=== PATIENT | female | born 1965 | race Caucasian/White ===

== ENCOUNTER 2023-08-26 12:33 | Emergency (ER) | payer BC, SELFPAY ==
[2023-08-26] VITALS (32 sets, daily range): BP systolic 99–122; BP diastolic 56–73; PULSE 40–66; RESP 10–23; TEMP 36.3; O2SAT 100
--- NOTE | 2023-08-26 12:15 | DI.CT_ITS ---
Exam(s) CT HEAD CERVICAL SPINE WO EXAM: CT HEAD CERVICAL SPINE WO CLINICAL HISTORY: trauma. TECHNIQUE: Imaging Protocol: Axial computed tomography images with coronal and sagittal reformatted images were created and reviewed COMPARISON: CR,XR XR SHOULDER LT COMPLETE 2+V from 08/26/2023 FINDINGS: Head CT Ventricles and Extra axial spaces: Normal in size and morphology for the patient's age. Hemorrhage: None. Cerebral parenchyma: No evidence of mass or acute infarct. Midline shift: None. Brainstem/Cerebellum: Normal. Calvarium: Normal. Visualized Paranasal sinuses/Mastoids: Clear. Soft tissues: Unremarkable. Cervical Spine CT BONES: Vertebral body heights are maintained. Alignment is normal. There is no evidence of acute cerv ical spine fracture. Left clavicle fracture is noted. Question nondisplaced fracture right 1st rib. Degenerative disc changes and facet degenerative changes are seen . SOFT TISSUES: No paraspinal hematoma. The airway appears intact. No pneumothorax is seen at the lung apices. IMPRESSION: Head CT: No acute abnormality. C-spine CT: Degenerative changes, no acute abnormality. Left clavicle fracture. Question additional nondisplaced fracture of the right posterior 1st rib. RADIATION DOSE DELIVERED: Total DLP DATA REPOSITORY: All CT scans at this facility are submitted to the National Radiology Data Registry (NRDR) Dose Index Registry (DIR) with the [employer] (ACR). RADIATION OPTIMIZATION: All CT scans at this facility use at least one of these dose optimization te chniques: automated exposure control; mA and/or kV adjustment per patient size (includes targeted exa ms where dose is matched to clinical indication); or iterative reconstruction.
--- NOTE | 2023-08-26 12:15 | DI.CT_ITS ---
Exam(s) CT CHEST/ABD/PEL W CT THORACIC LUMBAR SPINE REC EXAM: CT CHEST/ABD/PEL W CLINICAL HISTORY: trauma. TECHNIQUE: Imaging Protocol: Axial computed tomography images of the chest abdomen pelvic with coron al and sagittal reformatted images were created and reviewed. Images of the thoracic and lumbar spin e were reconstructed in axial, coronal and sagittal planes in soft tissue and bone window from [facility] abdomen pelvic CT. CONTRAST MATERIAL: Intravenous: Omnipaque 350 Contrast volume:100 ml Oral: no COMPARISON: CT CT THORACIC LUMBAR SPINE REC from 08/26/2023 FINDINGS: CHEST: Tracheobronchial tree: Patent where visualized. Pulmonary parenchyma: No consolidation or dominant measurable mass. Pleura: No effusion or pneumothorax. Lymph nodes: Within normal limits. Aorta: Thoracic portion non-dilated. Heart: No pericardial effusion. Bones: . No lytic or blastic lesions.Nondisplaced fracture right 1st rib. Minimal compression fract ure anterior superior endplate of T12. No retropulsion. Soft tissues: Unremarkable. ABDOMEN and PELVIS: Liver: Mild periportal edema which could be secondary to IV hydration. Normal density. Simple cysts. No suspicious mass. No posttraumatic findings. Gallbladder and biliary tract: No evidence of stones or wall thickening. No biliary dilatation. Pancreas: Normal density, no abnormal calcifications or inflammatory process. Spleen: Normal. Kidneys: Normal size, contour and axis. No radiodense stones. No obstructive uropathy. No suspicious masses seen. Adrenal glands: No masses seen. Aorta: Abdominal portion non-dilated. Lymph nodes: Within normal limits. Soft tissues: Unremarkable. Bladder: Unremarkable. Bowel: No obstruction or bowel wall thickening. Peritoneal cavity: No ascites. No focal collection. No mesenteric inflammatory response. Bones: Comminuted mild compression of the superior endplate of L1. Mild retropulsion of proximally 5 millimeters. No posterior element involvement. No additional fractures. Degenerative disc changes at L3-4 and L4-5. Reproductive organs: Within normal limits. IMPRESSION: Nondisplaced fracture right 1st rib. Minimal compression fracture anterior superior endplate of T12. Comminuted mild compression of the superior endplate of L1 with 5 millimeters of retropulsion of the superior endplate. RADIATION DOSE DELIVERED: Total DLP DATA REPOSITORY: All CT scans at this facility are submitted to the National Radiology Data Registry (NRDR) Dose Index Registry (DIR) with the [employer] (ACR). RADIATION OPTIMIZATION: All CT scans at this facility use at least one of these dose optimization te chniques: automated exposure control; mA and/or kV adjustment per patient size (includes targeted exa ms where dose is matched to clinical indication); or iterative reconstruction.
--- NOTE | 2023-08-26 12:30 | RT.EKG_ITS ---
APPROVED REPORT Exam: Resting ECG Reason for Exam: gregg , trauma Patient Location: E HR:43 bpm ECG Measurements Heart Rate 43 AXIS RI 129 P 61 QRSd 104 QRS 82 QT 519 T 69 QTc 439 Conclusion Sinus bradycardia 43 no stemi
--- NOTE | 2023-08-26 12:30 | DI.RAD_ITS ---
Exam(s) XR SHOULDER LT COMPLETE 2+V XR CLAVICLE LT EXAM: XR SHOULDER LT COMPLETE 2+V CLINICAL HISTORY: left shoulder injury. TECHNIQUE: 2D digital imaging was performed. Three views of the shoulder. Two views of the clavicl e. COMPARISON: No exams were available for comparison FINDINGS: BONES: Mildly displaced fracture of the distal clavicle. No additional fractures. No bony destructi ve lesion is seen. JOINTS: No dislocation present. The AC joint is not widened. Mild spurring at the AC joint. [place] umeral joint space is maintained. SOFT TISSUE: Normal. IMPRESSION: Mildly displaced distal clavicle fracture. DATA REPOSITORY: RADIATION DOSE DELIVERED:
[2023-08-26 12:51] LABS: Abs Immature Grans 0.04 10^3/uL (0.0-0.06); Absolute Basophil Count 0.02 10^3/uL (0.0-0.2); Absolute Eosinophil Count 0.02 10^3/uL (0.0-0.7); Absolute Lymphocyte Count 0.69 10^3/uL (1.2-3.4); Absolute Monocyte Count 0.35 10^3/uL (0.1-0.8); Absolute Neutrophil Count 4.08 10^3/uL (1.2-6.7); Basophils % 0.4; Eosinophils % 0.4; HCT 35.4 % (36.0-46.0); HGB 11.6 g/dL (11.2-15.7); Immature Grans % 0.8; Lymphocytes % 13.3; MCH 29.1 pg (27.0-33.0); MCHC 32.8 % (32.0-36.0); MCV 89 fL (80-95); MPV 9.7 fL (8.0-11.0); Monocytes % 6.7; Neutrophils % 78.4; Platelet Count 163 10^3/uL (130-400); RBC 3.99 10^6/uL (3.93-5.22); RDW 13.2 % (11.7-14.6)
[2023-08-26] MEDS: Normal Saline - Diluent 50 ML VIAL IJ ×2 (12:59→15:54)
[2023-08-26] MEDS: Omnipaque 350 MG/ML 100 ML BTL IJ ×2 (13:04→15:54)
[2023-08-26 13:07] LABS: INR 1.1 (0.9-1.1); PTT Activated 21.6 sec (23.6-32.8); Prothrombin Time 11.2 sec (9.1-11.1)
[2023-08-26 13:09] LABS: ALT 31 U/L (14-59); AST 29 U/L (15-37); Albumin 3.6 g/dL (3.4-5.0); Alkaline Phosphatase 52 U/L (46-116); Anion Gap 11.5 mmol/L (3-11); BUN 12 mg/dL (7-18); Bilirubin, Total 0.8 mg/dL (0.2-1.0); CO2 24.5 mmol/L (21.0-32.0); CREATININE 0.8 mg/dL (0.55-1.02); Calcium 8.4 mg/dL (8.5-10.1); Chloride 104 mmol/L (98-107); Estimated GFR 85.35 (mL/min/1.73m2); Glucose 131 mg/dL (74-106); Potassium 3.3 mmol/L (3.5-5.1); Sodium 140 mmol/L (136-145); Total Protein 6.1 g/dL (6.4-8.2); Troponin I < 50 ng/L (< or =60)
[2023-08-26 13:10] LABS: ETHANOL BLOOD < 3.0 mg/dL (<10)
--- NOTE | 2023-08-26 13:24 | DI.VRAD_ITS ---
PROCEDURE INFORMATION: Exam: CT Head Without Contrast Exam date and time: 08/26/2023 12:56 PM Age: 57 years old Clinical indication: Other: Trauma TECHNIQUE: Imaging protocol: Computed tomography of the head without contrast. Radiation optimization: All CT scans at this facility use at least one of these dose optimization techniques: automated exposure control; mA and/or kV adjustment per patient size (includes targeted exams where dose is matched to clinical indication); or iterative reconstruction. COMPARISON: No relevant prior studies available. FINDINGS: Brain: Normal. No hemorrhage. Unremarkable white matter. No mass effect. Cerebral ventricles: No ventriculomegaly. Paranasal sinuses: Visualized sinuses are unremarkable. No fluid levels. Mastoid air cells: Visualized mastoid air cells are well aerated. Bones/joints: Unremarkable. No acute fracture. Soft tissues: Unremarkable. IMPRESSION: No acute intracranial abnormality. PROCEDURE INFORMATION: Exam: CT Cervical Spine Without Contrast Exam date and time: 08/26/2023 12:56 PM Age: 57 years old Clinical indication: Other: Trauma TECHNIQUE: Imaging protocol: Computed tomography of the cervical spine without contrast. Radiation optimization: All CT scans at this facility use at least one of these dose optimization techniques: automated exposure control; mA and/or kV adjustment per patient size (includes targeted exams where dose is matched to clinical indication); or iterative reconstruction. COMPARISON: No relevant prior studies available. FINDINGS: Bones/joints: Displaced lateral left clavicle fracture. Lucency through the right posterior 1st rib. Series 14, image 29, 30 consistent with nondisplaced fracture. No acute fracture of the cervical spine. No subluxation or dislocation of the cervical spine. Intervertebral disc space narrowing C4 through C7 may represent degenerative disc disease.. Anterior osteophyte formation C4 through C7. Posterior osteophyte formation C4 through C7. Degenerative changes in the facets at multiple levels. Degenerative changes at C1/C2 Lungs: Lung apices are normal. Thyroid: The thyroid is unremarkable Soft tissues: Unremarkable. IMPRESSION: 1. Displaced lateral left clavicle fracture. 2. Lucency through the right posterior 1st rib. Series 14, image 29, 30 consistent with nondisplaced fracture. 3. No acute fracture of the cervical spine. 4. No subluxation or dislocation of the cervical spine. 5. Intervertebral disc space narrowing C4 through C7 may represent degenerative disc disease.. Dictated and Authenticated by: Antoine Alvarez MD. Ordering:DA Morataya MD
--- NOTE | 2023-08-26 13:58 | DI.VRAD_ITS ---
PROCEDURE INFORMATION: Exam: CT Chest With Contrast; Diagnostic Exam date and time: 08/26/2023 1:03 PM Age: 57 years old Clinical indication: Other: Trauma TECHNIQUE: Imaging protocol: Diagnostic computed tomography of the chest with contrast. 3D rendering (Not supervised by radiologist): MIP and/or 3D reconstructed images were created by the technologist. Radiation optimization: All CT scans at this facility use at least one of these dose optimization techniques: automated exposure control; mA and/or kV adjustment per patient size (includes targeted exams where dose is matched to clinical indication); or iterative reconstruction. Contrast material: OMNI 350; Contrast volume: 100 ml; Contrast route: INTRAVENOUS (IV); COMPARISON: CT HEAD CERVICAL SPINE WO 08/26/2023 12:56 PM FINDINGS: Lungs: Mild dependent atelectasis is present bilaterally. The lungs are otherwise clear. Pleural spaces: Unremarkable. No pneumothorax. No pleural effusion. Heart: Unremarkable. No cardiomegaly. No pericardial effusion. Mediastinal space: No mediastinal hematoma is identified. Lymph nodes: Unremarkable. No enlarged lymph nodes. Vasculature: The thoracic aorta is nonaneurysmal. Bones/joints: Degenerative changes involve the spine. Acute, nondisplaced fracture again involves the right 1st rib posteromedially. There is very mild acute compression of the superior T12 endplate, with a minimally displaced fracture line along the right aspect of the endplate. No additional fracture is identified. Soft tissues: Unremarkable. IMPRESSION: 1. Nondisplaced fracture of the right 1st rib posteromedially. 2. Very mild acute compression deformity of the superior T12 endplate. 3. Otherwise, no evidence for acute intrathoracic injury. PROCEDURE INFORMATION: Exam: CT Abdomen And Pelvis With Contrast Exam date and time: 08/26/2023 1:03 PM Age: 57 years old Clinical indication: Other: Trauma TECHNIQUE: Imaging protocol: Computed tomography of the abdomen and pelvis with contrast. 3D rendering (Not supervised by radiologist): MIP and/or 3D reconstructed images were created by the technologist. Radiation optimization: All CT scans at this facility use at least one of these dose optimization techniques: automated exposure control; mA and/or kV adjustment per patient size (includes targeted exams where dose is matched to clinical indication); or iterative reconstruction. Contrast material: OMNI 350; Contrast volume: 100 ml; Contrast route: INTRAVENOUS (IV); COMPARISON: No relevant prior studies available. FINDINGS: Liver: The liver is with mild periportal edema and contains a few cysts. It appears otherwise unremarkable. Gallbladder and bile ducts: No gallstones are evident, but ultrasound would be more sensitive. No gross biliary ductal dilatation. Pancreas: Normal. No ductal dilation. Spleen: Normal. No splenomegaly. Adrenal glands: Normal. No mass. Kidneys and ureters: The kidneys contain small cysts. They appear otherwise unremarkable. Stomach and bowel: Neither the stomach nor the small bowel are significantly distended or grossly thickwalled. There is probably decompression, rather than wall thickening, involving the descending and sigmoid colon. Appendix: The appendix is not identified, but there are no inflammatory changes in its expected region. Intraperitoneal space: No free air or significant free fluid. Vasculature: Unremarkable. No abdominal aortic aneurysm. Lymph nodes: Unremarkable. No enlarged lymph nodes. Urinary bladder: Unremarkable. Reproductive: There is a 2.3 cm uterine fibroid. No gross adnexal abnormality is apparent, but ultrasound would be more appropriate in this regard. Bones/joints: There is acute mild compression of the L1 vertebral body, with mildly displaced fracture lines extending through the superior endplate and anterior, posterior and bilateral lateral cortices. This is associated with approximately 5 mm broad-based central fragment retropulsion. No other fracture is identified. Degenerative changes involve the spine. Soft tissues: Unremarkable. IMPRESSION: 1. Acute mild compression of the L1 vertebral body with approximately 5 mm broad-based central fragment retropulsion. May consider MRI to evaluate integrity of the spinal cord. 2. Mild periportal edema involving the liver. While this may be seen with blunt abdominal trauma, it is nonspecific, and could be due to fluid resuscitation, cardiogenic compromise or primary liver disease. 3. Otherwise, no evidence for acute intra-abdominal or pelvic injury. 4. Probable decompression, rather than wall thickening, involving the descending and sigmoid colon, but correlate as to any potential colitis. Dictated and Authenticated by: Harris Martino MD. Ordering:AnaliliaLALA Morataya MD
--- NOTE | 2023-08-26 14:09 | DI.VRAD_ITS ---
PROCEDURE INFORMATION: Exam: CT Thoracic Spine Without Contrast Exam date and time: 08/26/2023 1:03 PM Age: 57 years old Clinical indication: Other: Trauma TECHNIQUE: Imaging protocol: Computed tomography of the thoracic spine without contrast. 3D rendering (Not supervised by radiologist): MIP and/or 3D reconstructed images were created by the technologist. Radiation optimization: All CT scans at this facility use at least one of these dose optimization techniques: automated exposure control; mA and/or kV adjustment per patient size (includes targeted exams where dose is matched to clinical indication); or iterative reconstruction. COMPARISON: CT CHEST/ABD/PEL W 08/26/2023 1:03 PM FINDINGS: Bones/joints: Acute, nondisplaced fracture again involves the right 1st rib posteromedially. There is again very mild acute compression of the superior T12 endplate, with a minimally displaced fracture line along the right aspect of the endplate. This is not associated with significant fragment retropulsion. Vertebral body heights are otherwise intact. No additional fracture is identified. There is multilevel facet arthrosis, disc space narrowing and marginal osteophyte formation. CT is not optimal for the evaluation of the discs, neural foramina or spinal canal or cord. No significant spinal stenosis is evident. Soft tissues: Mild associated paraspinal soft tissue edema at the T12 level. IMPRESSION: 1. Nondisplaced fracture of the right 1st rib posteromedially. 2. Very mild acute compression deformity of the superior T12 endplate. COMMENTS: Contrast is present relating to other studies being concurrently performed. PROCEDURE INFORMATION: Exam: CT Lumbar Spine Without Contrast Exam date and time: 08/26/2023 1:03 PM Age: 57 years old Clinical indication: Other: Trauma TECHNIQUE: Imaging protocol: Computed tomography of the lumbar spine without contrast. 3D rendering (Not supervised by radiologist): MIP and/or 3D reconstructed images were created by the technologist. Radiation optimization: All CT scans at this facility use at least one of these dose optimization techniques: automated exposure control; mA and/or kV adjustment per patient size (includes targeted exams where dose is matched to clinical indication); or iterative reconstruction. COMPARISON: CT CHEST/ABD/PEL W 08/26/2023 1:03 PM FINDINGS: Bones/joints: There is again acute mild compression of the L1 vertebral body, with mildly displaced fracture lines extending through the superior and inferior endplates, and anterior, posterior and bilateral lateral cortices. This is associated with approximately 5 mm broad-based central fragment retropulsion. There is no involvement of the posterior elements or pedicles. Vertebral body heights are otherwise intact. No pars defect is identified. No other fracture is identified. Discs/Spinal canal/Neural foramina: There is multilevel disc space narrowing, facet arthrosis and marginal osteophyte formation with variable narrowing of several neural foramina. CT is not optimal for the evaluation of the discs, neural foramina or spinal canal or cord. No significant spinal stenosis is evident. Soft tissues: Mild associated paraspinal soft tissue edema at the L1 level. IMPRESSION: Acute mild compression of the L1 vertebral body with approximately 5 mm broad-based central fragment retropulsion. May consider MRI to evaluate integrity of the spinal cord. COMMENTS: Contrast is present relating to other studies being concurrently performed. Dictated and Authenticated by: Harris Martino MD. Ordering:DA Morataya MD
[2023-08-26] MEDS: Ondansetron 4 MG/2 ML VIAL IVP ×2 (14:20→16:16)
--- NOTE | 2023-08-26 14:24 | DI.VRAD_ITS ---
PROCEDURE INFORMATION: Exam: XR Left Shoulder Exam date and time: 08/26/2023 2:06 PM Age: 57 years old Clinical indication: Other: Trauma TECHNIQUE: Imaging protocol: Radiologic exam of the left shoulder. Views: 2 or more views. COMPARISON: CR XR CLAVICLE LT 08/26/2023 2:05 PM FINDINGS: Bones/joints: There is again an acute fracture of the distal clavicle. No other fracture is identified. The acromioclavicular joint is not significantly widened. The glenohumeral joint is normally aligned. Soft tissues: There is associated soft tissue swelling. IMPRESSION: Acute distal clavicular fracture. Dictated and Authenticated by: Harris Martino MD. Ordering:DA Morataya MD
--- NOTE | 2023-08-26 14:24 | DI.VRAD_ITS ---
PROCEDURE INFORMATION: Exam: XR Left Clavicle, Complete Exam date and time: 08/26/2023 2:05 PM Age: 57 years old Clinical indication: Other: Trauma TECHNIQUE: Imaging protocol: Radiologic exam of the left clavicle. Complete exam. Views: Any number of views. COMPARISON: CT CHEST/ABD/PEL W 08/26/2023 1:03 PM FINDINGS: Bones/joints: There is an acute, moderately displaced, obliquely oriented fracture through the distal aspect of the clavicle, without involvement of its distal articular surface. The distal fragment is mildly superiorly elevated. No other fracture is identified. The acromioclavicular joint is not significantly widened. Soft tissues: There is mild associated soft tissue swelling. IMPRESSION: Acute distal clavicular fracture. Dictated and Authenticated by: Harris Martino MD. Ordering:DA Morataya MD
--- NOTE | 2023-08-26 15:15 | DI.CT_ITS ---
Exam(s) CT CAROTID NECK CTA EXAM: CT CAROTID NECK CTA CLINICAL HISTORY: trauma. TECHNIQUE: Imaging Protocol: Axial CT angiography was performed with multi-slice acquisition and mu lti-planar and MIP reconstructions. CONTRAST MATERIAL: Intravenous: Omnipaque 350 Contrast volume:100 ml COMPARISON: CT CT THORACIC LUMBAR SPINE REC from 08/26/2023 CR,XR XR SHOULDER LT COMPLETE 2+V from 08/26/2023 FINDINGS: CTA Brain W: Internal Carotid Arteries: Petrous: Normal. Cavernous: Normal. Cerebral: Normal. Middle Cerebral Arteries: Right: No aneurysm, occlusion or significant stenosis. Left: No aneurysm, occlusion or significant stenosis. Anterior Cerebral Arteries: Right: No aneurysm, occlusion or significant stenosis. Left: No aneurysm, occlusion or significant stenosis. Posterior cerebral Arteries: Right: No aneurysm, occlusion or significant stenosis. Left: No aneurysm, occlusion or significant stenosis. Vertebral Arteries: Right: No aneurysm, occlusion or significant stenosis. Left: No aneurysm, occlusion or significant stenosis. Basilar Artery: No aneurysm, occlusion or significant stenosis. CTA Neck W: Common Carotid: Right: No dissection, occlusion or significant stenosis. Left: No dissection, occlusion or significant stenosis. External Carotid: Right: No dissection, occlusion or significant stenosis. Left: No dissection, occlusion or significant stenosis. Internal Carotid: Right: No dissection, occlusion or significant stenosis. Left: No dissection, occlusion or significant stenosis. Vertebral Artery: Right: No dissection, occlusion or significant stenosis. Left: Dominant. No dissection, occlusion or significant stenosis. Lung Apices: Normal. Bones: Nondisplaced fracture right 1st rib. Left clavicle fracture. Soft Tissues: Normal. IMPRESSION: CTA brain: Normal CTA examination of the [place]. CTA neck: Normal CTA examination of the neck. No evidence of vascular injury. RADIATION DOSE DELIVERED: Total DLP DATA REPOSITORY: All CT scans at this facility are submitted to the National Radiology Data Registry (NRDR) Dose Index Registry (DIR) with the [employer] ([employer]). RADIATION OPTIMIZATION: All CT scans at this facility use at least one of these dose optimization te chniques: automated exposure control; mA and/or kV adjustment per patient size (includes targeted exa ms where dose is matched to clinical indication); or iterative reconstruction.
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
[2023-08-26] MEDS: MORPHine 4 MG/ML SYR IVP (16:16)
--- NOTE | 2023-08-26 16:27 | DI.VRAD_ITS ---
PROCEDURE INFORMATION: Exam: CTA Neck With Contrast Exam date and time: 08/26/2023 3:38 PM Age: 57 years old Clinical indication: Pain; : Trauma TECHNIQUE: Imaging protocol: Computed tomographic angiography of the neck with contrast. Exam focused on the cervical segments of the vasculature. 3D rendering (Not supervised by radiologist): MIP and/or 3D reconstructed images were created by the technologist. COMPARISON: CT HEAD CERVICAL SPINE WO 08/26/2023 12:56 PM FINDINGS: Right common carotid artery: No stenosis. No dissection or occlusion. Right internal carotid artery: No stenosis of the extracranial segment. No dissection or occlusion. Right external carotid artery: No occlusion or stenosis of the origin. Left common carotid artery: No stenosis. No dissection or occlusion. Left internal carotid artery: No stenosis of the extracranial segment. No dissection or occlusion. Left external carotid artery: No occlusion or stenosis of the origin. Right vertebral artery: No stenosis. No dissection or occlusion. Left vertebral artery: No stenosis. No dissection or occlusion. Soft tissues: Normal. No significant soft tissue swelling. Bones/joints: There is an acute minimally displaced fracture at the lateral aspect of the left clavicle, partially evaluated on this scan. IMPRESSION: 1. No stenosis or occlusion. 2. No arterial dissection. 3. Partially visualized left clavicular fracture, better evaluated on the concurrent CT of the chest. REFERENCES: NASCET CRITERIA. The degree of stenosis in the cervical segment of the internal carotid artery is based on NASCET criteria. Normal is no stenosis. Mild is less than 50% stenosis. Moderate is 50-69% stenosis. Severe is 70% to 99% stenosis. Total occlusion is no detectable patent lumen. Dictated and Authenticated by: Nella Crisostomo MD. Ordering:[facility] Dex Morataya MD
== END 2023-08-26 16:12 | disposition short-term general hospital (02) ==
PROVIDERS: Emergency Provider Emergency Medicine
DX: M25.512 Pain in left shoulder (principal); S42.022A Displaced fracture of shaft of left clavicle, initial encounter for closed fracture; R11.0 Nausea; S22.089A Unspecified fracture of T11-T12 vertebra, initial encounter for closed fracture; S32.019A Unspecified fracture of first lumbar vertebra, initial encounter for closed fracture; W22.8XXA Striking against or struck by other objects, initial encounter; Y93.23 Activity, snow (alpine) (downhill) skiing, snowboarding, sledding, tobogganing and snow tubing
CPT/HCPCS: 70498; 74177; 80053; 86850; 86900; 86901; 93005; 96374; 96375; 96376; 99291; 70450; 71260; 72125; 73000; 73030; 80320; 84484; 85025; 85610; 85730; 93010; J2270; J2405; J3490